=== PATIENT | female | born 1970 | race Caucasian/White ===

== ENCOUNTER 2023-12-19 12:45 | Outpatient (CLI) | payer OTHER ==
[~2023-12-19 12:45] MED LIST: NORFLEX100MG PO
== END 2023-12-19 13:29 | disposition home or self-care (01) ==
LOC: RAD 12:45
PROVIDERS: ATTEND Physical Medicine & Rehabilitation
DX: M54.50 Low back pain, unspecified (principal)

== ENCOUNTER 2024-01-20 15:44 | Outpatient (CLI) | payer OTHER | END 2024-01-20 15:49 | disposition home or self-care (01) | LOC: MRI 15:44 | PROVIDERS: ATTEND Physical Medicine & Rehabilitation | DX: M54.51 Vertebrogenic low back pain (principal) | CPT/HCPCS: 72148 ==